=== PATIENT | male | born 1970 | race Caucasian/White ===

== ENCOUNTER 2022-08-01 13:10 | Inpatient (IN) | payer MEDICAID ==
[~2022-08-01] VITALS: Ht 180.3 cm; Wt 140.4 kg
[2022-08-01 13:59] LABS: BASOPHILS ABSOLUTE AUTO 0.03 K/mm3 (0.00-0.23); BASOPHILS PERCENT AUTO 0 % (0-2); EOSINOPHILS ABSOLUTE AUTO 0.11 K/mm3 (0.00-0.68); EOSINOPHILS PERCENT AUTO 2 % (0-6); Hemoglobin 14.5 g/dL (13.5-17.5); IMMATURE GRAN ABSOLUTE AUTO 0.04 K/mm3 (0.00-0.10); IMMATURE GRAN PERCENT AUTO 1 % (0-1); LYMPHOCYTES ABSOLUTE AUTO 2.33 K/mm3 (0.84-5.20); LYMPHOCYTES PERCENT AUTO 34 % (21-46); MONOCYTES ABSOLUTE AUTO 0.54 K/mm3 (0.16-1.47); MONOCYTES PERCENT AUTO 8 % (4-13); Mean Corpuscular HGB 28.9 pg (26.0-34.0); Mean Corpuscular HGB Conc 33.7 g/dL (31.5-36.5); Mean Corpuscular Volume 86 fL (80-100); Mean Platelet Volume 9.9 fL (9.1-12.4); NEUTROPHILS ABSOLUTE AUTO 3.83 K/mm3 (1.96-9.15); NEUTROPHILS PERCENT AUTO 56 % (41-73); Platelet Count 209 K/mm3 (150-400); RDW Standard Deviation 40.5 fL (35.1-46.3); Red Blood Cell Count 5.02 M/mm3 (4.30-5.90); White Blood Cell Count 6.88 K/mm3 (4.00-11.30)
[2022-08-01 14:23] LABS: Albumin, Blood 3.1 g/dL (3.4-5.0); Albumin/Globulin Ratio 0.8 (0.8-1.8); Bilirubin, Total 0.4 mg/dL (0.1-1.0); Bun/Creatinine Ratio 11.7 (12.0-20.0); Calcium, Blood 8.8 mg/dL (8.5-10.1); Creatinine, Blood 1.03 mg/dL (0.60-1.20); Globulin, Blood 3.7 g/dL (2.2-4.0); Potassium, Blood 3.6 mmol/L (3.5-5.5); Total Protein, Blood 6.8 g/dL (6.4-8.2)
[2022-08-01] MEDS ORDERED: Percocet 5-3251 EACH PO (17:00)
[2022-08-01] MEDS ORDERED: ACYC800 PO (17:00)
[2022-08-01] MEDS ORDERED: LIDO700A20 TOP (17:00)
[2022-08-01] MEDS ORDERED: IBUP800 PO (17:00)
[2022-08-01 19:16] LABS: Anti-Xa UFH, PHA Monitoring <0.10 IU/mL; Prothrombin Time Results 10.5 Sec (9.7-11.5)
[2022-08-02 02:56] LABS: Cholesterol 129 mg/dL (50-200); HDL Cholesterol 32 mg/dL (>39); LDL/HDL RATIO 1.9; Low Density Lipoprotein Chol 61 mg/dL (0-110); Triglycerides 181 mg/dL (30-160); Very Low Density Lipoprot Chol 36 mg/dL (6-32)
--- NOTE | 2022-08-02 05:34 | NUR ---
END OF SHIFT REPORT LINES: RAC DRIPS: HEPARIN AT 15 UNITS/KG/HR NEURO/MUSCULOSKELETAL: PT WNL. FOLLOWS COMMANDS. GROSS AND FINE SENSATION INTACT. INDEPENDENT IN THE ROOM. PT DENIES NUMBNESS/TINGLING, HEADACHE OR VISION CHANGES RESPIRATORY: RA. SATTING >95%. PT DENIES SOB/DYSPNEA. CARDIAC: SUBSTERNAL CHEST PAIN. MANAGING WITH PRNS. SB-NSR. HR 50s-60s. SBP AVERAGING 110s-130s. MAPS >65. GI/: NPO AT MIDNIGHT. HEART HEALTHY DIET. WNL. CONTINENT OF BOWEL AND BLADDER. INTEGUMENTARY: INTACT
[2022-08-02 10:08] LABS: BASOPHILS ABSOLUTE AUTO 0.03 K/mm3 (0.00-0.23); BASOPHILS PERCENT AUTO 1 % (0-2); EOSINOPHILS ABSOLUTE AUTO 0.12 K/mm3 (0.00-0.68); EOSINOPHILS PERCENT AUTO 2 % (0-6); Hematocrit 41.6 % (37.0-53.0); Hemoglobin 14.2 g/dL (13.5-17.5); IMMATURE GRAN ABSOLUTE AUTO 0.04 K/mm3 (0.00-0.10); IMMATURE GRAN PERCENT AUTO 1 % (0-1); LYMPHOCYTES ABSOLUTE AUTO 2.16 K/mm3 (0.84-5.20); LYMPHOCYTES PERCENT AUTO 36 % (21-46); MONOCYTES ABSOLUTE AUTO 0.54 K/mm3 (0.16-1.47); MONOCYTES PERCENT AUTO 9 % (4-13); Mean Corpuscular HGB 28.7 pg (26.0-34.0); Mean Corpuscular HGB Conc 34.1 g/dL (31.5-36.5); Mean Corpuscular Volume 84 fL (80-100); Mean Platelet Volume 10.1 fL (9.1-12.4); NEUTROPHILS ABSOLUTE AUTO 3.14 K/mm3 (1.96-9.15); NEUTROPHILS PERCENT AUTO 52 % (41-73); Platelet Count 198 K/mm3 (150-400); RDW Coefficient Variation 13.2 % (11.7-14.2); RDW Standard Deviation 40.1 fL (35.1-46.3); Red Blood Cell Count 4.95 M/mm3 (4.30-5.90); White Blood Cell Count 6.03 K/mm3 (4.00-11.30)
[2022-08-02 14:23] LABS: SARS-Cov-2 (COVID-19) PCR, MMC NEGATIVE (NEGATIVE)
--- NOTE | 2022-08-02 17:28 | NUR ---
ASSUMED CARE OF PT AT 0700 THIS AM. PT HAS DENIED CHEST PAIN OR SOB T/O SHIFT. TROPONINS AND D-DIMER ELEVATED, PT NEGATIVE FOR DVT, CTA + FOR BILATERAL PEs. DR SAUCEDO AND DR FELIZ AWARE, NEW ORDERS RECEIVED. DR SAUCEDO SPOKE WITH PT AND EXPLAINED PLAN. HEPARING GTT DC'd AND PT GIVEN XARELTO PER MD ORDERS. PT CONTINUES TO DENY CHEST PAIN OR PRESSURE, NO SOB. VSS, SEE DOCUMENTATION. PLAN PER DR GODINEZ IS TO DC PT TOMORROW. PT ABLE TO USE CALL LIGHT FOR NEEDS, CALL LIGHT IN REACH, WILL CONITNUE TO MONITOR AND GIVE REPORT TO NOC SHIFT RN.
[2022-08-03 04:02] LABS: BASOPHILS ABSOLUTE AUTO 0.01 K/mm3 (0.00-0.23); BASOPHILS PERCENT AUTO 0 % (0-2); EOSINOPHILS ABSOLUTE AUTO 0.15 K/mm3 (0.00-0.68); EOSINOPHILS PERCENT AUTO 3 % (0-6); Hematocrit 43.3 % (37.0-53.0); Hemoglobin 14.8 g/dL (13.5-17.5); IMMATURE GRAN ABSOLUTE AUTO 0.04 K/mm3 (0.00-0.10); IMMATURE GRAN PERCENT AUTO 1 % (0-1); LYMPHOCYTES ABSOLUTE AUTO 1.65 K/mm3 (0.84-5.20); LYMPHOCYTES PERCENT AUTO 31 % (21-46); MONOCYTES ABSOLUTE AUTO 0.46 K/mm3 (0.16-1.47); MONOCYTES PERCENT AUTO 9 % (4-13); Mean Corpuscular HGB 28.9 pg (26.0-34.0); Mean Corpuscular HGB Conc 34.2 g/dL (31.5-36.5); Mean Corpuscular Volume 85 fL (80-100); Mean Platelet Volume 9.7 fL (9.1-12.4); NEUTROPHILS ABSOLUTE AUTO 2.99 K/mm3 (1.96-9.15); NEUTROPHILS PERCENT AUTO 56 % (41-73); Platelet Count 200 K/mm3 (150-400); RDW Standard Deviation 39.9 fL (35.1-46.3); Red Blood Cell Count 5.12 M/mm3 (4.30-5.90)
[2022-08-03 04:43] LABS: Bun/Creatinine Ratio 11.4 (12.0-20.0); Calcium, Blood 8.4 mg/dL (8.5-10.1); Creatinine, Blood 1.14 mg/dL (0.60-1.20); Potassium, Blood 4.1 mmol/L (3.5-5.5)
--- NOTE | 2022-08-03 06:25 | NUR ---
GROUND WIRER SUMMARY ASSUMED CARE OF THE PT AT 1900. HE IS ALERT AND ORIENTED, INDEPENDENT IN THE ROOM. PT DENIES ALL CHEST PAIN/SHORTNESS OF BREATH. THIS RN DID HOLD NOC METOPROLOL DUE TO PT HR IN THE 50S AND BP DECREASING. PT TO BE SWITCHED OVER TO ORAL BLOOD THINNERS FOR TREATMENT OF PULMONARY EMBOLISM. HE IS ON RA AND SATTING IN THE HIGH 90S. NO TACHYPNEA. TELE HAS BEEN SINUS IN THE 50S AND 60S THROUGHOUT THE SHIFT. NO ACUTE EVENTS.
[2022-08-03] MEDS ORDERED: XARELTO15 MG PO (12:46)
[2022-08-03] MEDS ORDERED: XARELTO20 MG PO (12:47)
[2022-08-03] MEDS ORDERED: METO25ER PO (12:47)
--- NOTE | 2022-08-03 13:06 | NUR ---
PT DISHCARGED HOME WITH ALL BELONGINGS. PT PROVIDED WITH XARELTO DISCOUNT CARD. REVIEWED ALL DISCHARGE INFORMATION INCLUDING MEDICATION LIST, NEW PRESCRIPTIONS, FOLLOW UP AND NEED FOR ESTABLISHING PCP/INSURANCE. REINFORCED THE IMPORTANCE OF TAKING ALL HIS MEDICATIONS PRESCRIBED, ESPECIALLY THE XARELTO FOR HIS PE. PT VERBALIZED UNDERSTANDING OF ALL DISCHARGE INSTRUCTIONS, NO QUESTION OR CONCERNS AT THIS TIME. PT ABLE TO AMBULATE WITHOUT ASSISTANCE, ALL BELONGINGS SENT HOME WITH PT. NO FURTHER DISCHARGE NEEDS AT THIS TIME.
== END 2022-08-03 12:58 | disposition home or self-care (01) | DRG 176 ==
LOC: ER 13:10 → PCU 21:45
PROVIDERS: Internal Medicine Cardiovascular Disease; Student in an Organized Health Care Education/Training Program; ADMIT Internal Medicine
DX: I26.99 Other pulmonary embolism without acute cor pulmonale (principal); Z68.41 Body mass index [BMI] 40.0-44.9, adult; I20.0 Unstable angina; E66.01 Morbid (severe) obesity due to excess calories; R60.0 Localized edema; R79.1 Abnormal coagulation profile; E78.5 Hyperlipidemia, unspecified; I10 Essential (primary) hypertension; B02.9 Zoster without complications; R77.8 Other specified abnormalities of plasma proteins; Z20.822 Contact with and (suspected) exposure to COVID-19; Z87.442 Personal history of urinary calculi; Z87.01 Personal history of pneumonia (recurrent); Z87.891 Personal history of nicotine dependence; Z82.49 Family history of ischemic heart disease and other diseases of the circulatory system
CPT/HCPCS: 36415; 71046; 71260; 80048; 80053; 80061; 83690; 84484; 85025; 85379; 85520; 85610; 85730; 93005; 93010; 93306; 93971; 96365; 96366; 96375; 99285-25; A9270; J1644; J1885; Q9967; U0004

== ENCOUNTER → 2022-09-26 | Outpatient (CLI) | payer OTHER ==
[~2022-09-26] MED LIST: ACYC800 PO; IBUP800 PO; LIDO700A20 TOP; METO25ER PO; Percocet 5-3251 EACH PO; XARELTO15 MG PO; XARELTO20 MG PO
[2022-09-28 07:45] LABS: Stool Occult Blood Guaiac 1 Neg (Neg)
[2022-09-28 07:48] LABS: Stool Occult Blood Guaiac 2 Pos (Neg); Stool Occult Blood Guaiac 3 Neg (Neg)
== END | disposition home or self-care (01) ==
LOC: LAB SHORT 21:00 → LAB 21:00
PROVIDERS: Registered Nurse Oncology
DX: I26.99 Other pulmonary embolism without acute cor pulmonale (principal)
CPT/HCPCS: 82272

== ENCOUNTER 2022-10-05 22:09 | Observation (INO) | payer OTHER ==
[~2022-10-05] VITALS: Ht 180.3 cm; Wt 137.1 kg
[2022-10-05 22:31] LABS: BASOPHILS ABSOLUTE AUTO 0.04 K/mm3 (0.00-0.23); BASOPHILS PERCENT AUTO 1 % (0-2); EOSINOPHILS PERCENT AUTO 1 % (0-6); Hematocrit 46.1 % (37.0-53.0); Hemoglobin 15.3 g/dL (13.5-17.5); IMMATURE GRAN ABSOLUTE AUTO 0.03 K/mm3 (0.00-0.10); IMMATURE GRAN PERCENT AUTO 0 % (0-1); LYMPHOCYTES ABSOLUTE AUTO 2.77 K/mm3 (0.84-5.20); LYMPHOCYTES PERCENT AUTO 39 % (21-46); MONOCYTES ABSOLUTE AUTO 0.66 K/mm3 (0.16-1.47); MONOCYTES PERCENT AUTO 9 % (4-13); Mean Corpuscular HGB 28.8 pg (26.0-34.0); Mean Corpuscular HGB Conc 33.2 g/dL (31.5-36.5); Mean Corpuscular Volume 87 fL (80-100); Mean Platelet Volume 9.9 fL (9.1-12.4); NEUTROPHILS ABSOLUTE AUTO 3.43 K/mm3 (1.96-9.15); NEUTROPHILS PERCENT AUTO 49 % (41-73); Platelet Count 224 K/mm3 (150-400); RDW Coefficient Variation 13.2 % (11.7-14.2); RDW Standard Deviation 41.4 fL (35.1-46.3); Red Blood Cell Count 5.32 M/mm3 (4.30-5.90); White Blood Cell Count 7.03 K/mm3 (4.00-11.30)
[2022-10-05 22:47] LABS: Albumin, Blood 3.6 g/dL (3.4-5.0); Bilirubin, Total 0.6 mg/dL (0.1-1.0); Bun/Creatinine Ratio 17.1 (12.0-20.0); Creatinine, Blood 1.05 mg/dL (0.60-1.20); Globulin, Blood 3.6 g/dL (2.2-4.0); Potassium, Blood 3.9 mmol/L (3.5-5.5); Total Protein, Blood 7.2 g/dL (6.4-8.2)
[2022-10-05 23:11] LABS: International Normalized Ratio 1.03; Prothrombin Time Results 10.8 Sec (9.7-11.5)
[2022-10-06 01:51] LABS: Anti-Xa UFH, PHA Monitoring 0.25 IU/mL
--- NOTE | 2022-10-06 05:24 | NUR ---
Assumed care of pt at 0146 as an ER admit. A/Ox4 and independent in room. At admit to unit, CP/pressure was a 2/10. Patient was able to go to sleep and doesnt currently c/o pain. Maintains over 92% on RA. VSS. NSR on tele 60-70's. Patient is paras in color. Patient has been NPO since admit. Will report to dayshift RN.
[2022-10-06 09:39] LABS: BASOPHILS ABSOLUTE AUTO 0.04 K/mm3 (0.00-0.23); BASOPHILS PERCENT AUTO 1 % (0-2); EOSINOPHILS PERCENT AUTO 2 % (0-6); Hematocrit 44.3 % (37.0-53.0); Hemoglobin 14.6 g/dL (13.5-17.5); IMMATURE GRAN ABSOLUTE AUTO 0.02 K/mm3 (0.00-0.10); IMMATURE GRAN PERCENT AUTO 0 % (0-1); LYMPHOCYTES ABSOLUTE AUTO 2.06 K/mm3 (0.84-5.20); LYMPHOCYTES PERCENT AUTO 38 % (21-46); MONOCYTES ABSOLUTE AUTO 0.48 K/mm3 (0.16-1.47); MONOCYTES PERCENT AUTO 9 % (4-13); Mean Corpuscular Volume 88 fL (80-100); NEUTROPHILS ABSOLUTE AUTO 2.78 K/mm3 (1.96-9.15); NEUTROPHILS PERCENT AUTO 51 % (41-73); Platelet Count 189 K/mm3 (150-400); RDW Coefficient Variation 13.3 % (11.7-14.2); RDW Standard Deviation 42.5 fL (35.1-46.3); Red Blood Cell Count 5.04 M/mm3 (4.30-5.90); White Blood Cell Count 5.48 K/mm3 (4.00-11.30)
[2022-10-06 09:56] LABS: Bun/Creatinine Ratio 18.7 (12.0-20.0); Calcium, Blood 8.4 mg/dL (8.5-10.1); Creatinine, Blood 0.85 mg/dL (0.60-1.20)
--- NOTE | 2022-10-06 16:38 | NUR ---
SHIFT SUMMARY PATIENT ALERT AND ORIENTED. TAKES FREQUENT NAPS. INDEPENDENT IN ROOM. VSS, SB IN 60S ON TELE, RA. NPO 4 HOURS PRIOR TO CHEMICAL STRESS TEST AT 2 PM. OTHERWISE TOLERATING CARDIAC DIET, NO CAFFEINE. REPORTS CHRONIC BACK PAIN, DENIES CP/PRESSURE OR SOB. HEPARIN GTT RUNNING IN LAC PIV, TITRATED BY PHARMACY. PLAN FOR 2ND PART OF STRESS TEST IN AM. NPO AFTER MIDNIGHT. SPOUSE PRESENT AT BEDSIDE THROUGH AFTERNOON. WILL CONTINUE TO MONITOR.
[2022-10-07 01:09] LABS: BASOPHILS ABSOLUTE AUTO 0.03 K/mm3 (0.00-0.23); BASOPHILS PERCENT AUTO 1 % (0-2); EOSINOPHILS ABSOLUTE AUTO 0.13 K/mm3 (0.00-0.68); EOSINOPHILS PERCENT AUTO 3 % (0-6); Hematocrit 44.4 % (37.0-53.0); Hemoglobin 14.9 g/dL (13.5-17.5); IMMATURE GRAN ABSOLUTE AUTO 0.01 K/mm3 (0.00-0.10); IMMATURE GRAN PERCENT AUTO 0 % (0-1); LYMPHOCYTES ABSOLUTE AUTO 1.95 K/mm3 (0.84-5.20); LYMPHOCYTES PERCENT AUTO 39 % (21-46); MONOCYTES ABSOLUTE AUTO 0.43 K/mm3 (0.16-1.47); MONOCYTES PERCENT AUTO 9 % (4-13); Mean Corpuscular HGB 28.7 pg (26.0-34.0); Mean Corpuscular HGB Conc 33.6 g/dL (31.5-36.5); Mean Corpuscular Volume 86 fL (80-100); Mean Platelet Volume 10.2 fL (9.1-12.4); NEUTROPHILS ABSOLUTE AUTO 2.44 K/mm3 (1.96-9.15); NEUTROPHILS PERCENT AUTO 49 % (41-73); Platelet Count 196 K/mm3 (150-400); RDW Coefficient Variation 13.2 % (11.7-14.2); RDW Standard Deviation 41.1 fL (35.1-46.3); Red Blood Cell Count 5.19 M/mm3 (4.30-5.90); White Blood Cell Count 4.99 K/mm3 (4.00-11.30)
[2022-10-07 01:24] LABS: Albumin, Blood 3.2 g/dL (3.4-5.0); Anion Gap 5 mmol/L (6-16); Blood Urea Nitrogen 16 mg/dL (8-24); CO2, Blood 24 mmol/L (21-32); Calcium, Blood 8.7 mg/dL (8.5-10.1); Chloride, Blood 111 mmol/L (98-108); Creatinine, Blood 0.94 mg/dL (0.60-1.20); Glomerular Filtration Rate 98 (60-); Glucose, Blood 110 mg/dL (70-99); Magnesium, Blood 2.1 mg/dL (1.6-2.4); Phosphorus, Blood 4.1 mg/dL (2.5-4.9); Potassium, Blood 3.9 mmol/L (3.5-5.5); Sodium, Blood 140 mmol/L (136-145)
--- NOTE | 2022-10-07 06:20 | NUR ---
SHIFT SUMMARY A/OX4, IND IN ROOM. PLEASANT AND COOPERATIVE WITH CARE. SPO2 >92% ON RA. TELE SR IN THE 60S. DENIES CHEST PAIN/PRESSURE. NPO SINCE MIDNIGHT FOR STRESS TEST TODAY. HEPARIN GTT RUNNING AT 15U/KG/HR. VSS, NO ACUTE CHANGES AT THIS TIME. BED IN LOWEST POSITION WITH CALL LIGHT IN REACH. WILL CONTINUE TO MONITOR AND REPORT TO ONCOMING RN.
--- NOTE | 2022-10-07 08:06 | NUR ---
CARE ASSUMPTION This RN assumed care at 0700. vital signs stable. tele sr 60-70. patient is alert and oriented x4. perrla. patient reports no pain. patient reports no shortness of breath. patient reports no chest pain/pressure. patient abd is active nontender. see shift assessment for further detials. patient is receiving second part of stress test, depending results once completed the plan is for the patient to be discharged today. patient aware and verbalized understanding. heparin drip infusing, see emar. patient is independent in the room. patient uses call light appropriately to make needs known. call light within reach. plan of care is up to date.
[2022-10-07] MEDS ORDERED: XARELTO20 M1 PO (12:12)
[2022-10-07] MEDS ORDERED: ASPI81CH PO (12:13)
[2022-10-07] MEDS ORDERED: Acetaminophen325 M1 PO (12:13)
[2022-10-07] MEDS ORDERED: ATOR40TA PO (12:16)
--- NOTE | 2022-10-07 12:50 | NUR ---
DISCHAGRE PATIENT RECEIVED DISCHARGE INSTRUCTIONS FROM AD WRITER GABE. MEDICATIONS FAXED TO PHARMACY. PATIENT LEFT WITH ALL BELONGINGS AND IN NO DISTRESS.
== END 2022-10-07 12:37 | disposition home or self-care (01) ==
LOC: ER 22:09 → PCU 10-06 01:42 → ER 10-06 01:42 → PCU 10-06 01:48
PROVIDERS: Emergency Medicine; Family Medicine; ADMIT Family Medicine
DX: I26.99 Other pulmonary embolism without acute cor pulmonale (principal); Z79.01 Long term (current) use of anticoagulants; I20.0 Unstable angina; Z87.891 Personal history of nicotine dependence
CPT/HCPCS: 36415; 71046; 78452; 80048; 80053; 80069; 83690; 83735; 83880; 84484; 85025; 85520; 85610; 85730; 93005; 93010; 93017; 96374; 96376; 99285-25; A9270; A9500; G0378; J0706; J1644; J2785

== ENCOUNTER 2023-03-30 09:10 | Day surgery (SDC) | payer OTHER ==
[~2023-03-30] VITALS: Ht 180.3 cm; Wt 133.2 kg
[~2023-03-30 09:10] MED LIST changes: +ASPI81CH PO; +ATOR40TA PO; +Acetaminophen325 M1 PO; +XARELTO20 M1 PO
[2023-03-30 09:38] VITALS: BP 150/81
--- NOTE | 2023-03-30 09:42 | NUR ---
Ambulatory in Day Surgery. History, Chart, Medications and Allergies reviewed before start of procedure. Lungs clear T/O to Auscultation. Patient confirms NPO status and agrees with scheduled surgery. Pre-Op teaching done. Pt verbalizes understanding. Patient States Post-Procedure ride home has been arranged.
[2023-03-30 10:30] VITALS: BP 138/103
[2023-03-30 10:34] VITALS: BP 148/96
[2023-03-30 10:50] VITALS: BP 153/110
--- NOTE | 2023-03-30 11:05 | NUR ---
DISCHARGE PT A&OX4, VSS/RA, ANIL PO, IV DC'D, DC INS PROVIDED TO PT AND . LEFT VIA WC WITH ALL [employer]ERSON[employer] DC INS. ARRANGED FOR TRANSPORTATION FOR BOTH PARTIES TO BE PICKED UP AT [facility]. BOTH PARTIES WERE TAKEN OUT IN WC AND SEATED AT FRONT ENTRANCE.
== END 2023-03-30 11:00 | disposition home or self-care (01) ==
LOC: ORSCMMR 09:10 → ORD 10:15 → ORSCMMR 11:00
PROVIDERS: Internal Medicine Gastroenterology
PROC: 0DJD8ZZ Inspection of Lower Intestinal Tract, Via Natural or Artificial Opening Endoscopic (ICD-10-PCS; principal; 2023-03-30 10:15)
DX: Z12.11 Encounter for screening for malignant neoplasm of colon (principal); K57.30 Diverticulosis of large intestine without perforation or abscess without bleeding; K64.8 Other hemorrhoids; Z87.891 Personal history of nicotine dependence; Z86.711 Personal history of pulmonary embolism; E66.9 Obesity, unspecified; Z68.41 Body mass index [BMI] 40.0-44.9, adult
CPT/HCPCS: J2704; J7120

== ENCOUNTER 2024-07-04 18:18 | Emergency (ER) | payer SELFPAY ==
[~2024-07-04] VITALS: Ht 180.3 cm; Wt 140.6 kg
[2024-07-04 18:56] LABS: BASOPHILS ABSOLUTE AUTO 0.04 K/mm3 (0.00-0.23); BASOPHILS PERCENT AUTO 1 % (0-2); EOSINOPHILS ABSOLUTE AUTO 0.08 K/mm3 (0.00-0.68); EOSINOPHILS PERCENT AUTO 1 % (0-6); Hematocrit 46.5 % (37.0-53.0); IMMATURE GRAN ABSOLUTE AUTO 0.02 K/mm3 (0.00-0.10); IMMATURE GRAN PERCENT AUTO 0 % (0-1); LYMPHOCYTES ABSOLUTE AUTO 1.99 K/mm3 (0.84-5.20); LYMPHOCYTES PERCENT AUTO 28 % (21-46); MONOCYTES ABSOLUTE AUTO 0.54 K/mm3 (0.16-1.47); MONOCYTES PERCENT AUTO 8 % (4-13); Mean Corpuscular HGB 29.7 pg (26.0-34.0); Mean Corpuscular HGB Conc 34.4 g/dL (31.5-36.5); Mean Corpuscular Volume 86 fL (80-100); Mean Platelet Volume 10.2 fL (9.1-12.4); NEUTROPHILS PERCENT AUTO 62 % (41-73); Platelet Count 224 K/mm3 (150-400); RDW Coefficient Variation 12.9 % (11.7-14.2); RDW Standard Deviation 40.5 fL (35.1-46.3); Red Blood Cell Count 5.39 M/mm3 (4.30-5.90); White Blood Cell Count 7.07 K/mm3 (4.00-11.30)
[2024-07-04 19:10] LABS: Albumin, Blood 3.8 g/dL (3.4-5.0); Calcium, Blood 9.5 mg/dL (8.5-10.1); Potassium, Blood 3.7 mmol/L (3.5-5.5)
[2024-07-04 19:11] LABS: Bun/Creatinine Ratio 12.7 (12.0-20.0); Creatinine, Blood 1.1 mg/dL (0.60-1.20); Total Protein, Blood 7.8 g/dL (6.4-8.2)
[2024-07-04] MEDS ORDERED: Ondansetron HCl 2 MG / ML 2ML Vial IV ONE (19:25)
[2024-07-04] MEDS ORDERED: Morphine Sulfate 4 MG/1 ML Injection IV ONE ×2 (19:25→20:00)
[2024-07-04] MEDS ORDERED: Lidocaine 2% Viscous Soln 15 ML UDC PO ONE (20:05)
[2024-07-04] MEDS ORDERED: Famotidine 20 MG Tab PO ONE (20:05)
[2024-07-04] MEDS ORDERED: Mag Hydrox/AL Hydrox/Simeth 30 ML UDC PO ONE (20:05)
[2024-07-04] MEDS ORDERED: Ketorolac Tromethamine 15mg Vial IV ONE (21:50)
[2024-07-04 21:52] LABS: Source, Urine Clean Catch
[2024-07-04 21:54] LABS: Bilirubin, Urine Neg (Neg); Blood, Urine Neg (Neg); Glucose Qualitative, Urine Neg (Neg); Ketones, Urine 1+ (Neg); Leukocyte Esterase, Urine 1+ (Neg); Nitrite, Urine Neg (Neg); Protein, Urine Neg (Neg); Urobilinogen, Urine NORM (Normal)
[2024-07-04 21:57] LABS: Appearance, Urine Clear (Clear); Color, Urine Yellow (P-Yellow)
[2024-07-04 22:06] LABS: Bacteria Not Seen /hpf; Red Blood Cells, Urine 0-2 /hpf (0-2); Squamous Epithelial Cells Rare /hpf (Few)
[2024-07-04 22:30] VITALS: BP 147/86
[2024-07-04] MEDS ORDERED: Haloperidol Lactate Inj. 5 MG/ML Injection IV ONE (22:55)
[2024-07-04] MEDS ORDERED: Acetaminophen 500 MG Tab PO ONE (22:55)
== END 2024-07-04 22:57 | disposition home or self-care (01) ==
LOC: ER 18:18
PROVIDERS: Student in an Organized Health Care Education/Training Program
DX: R10.12 Left upper quadrant pain (principal); R10.13 Epigastric pain; E66.01 Morbid (severe) obesity due to excess calories; Z87.891 Personal history of nicotine dependence
CPT/HCPCS: 74177; 80053; 81001; 83605; 83690; 84484; 85025; 93005; 93010; 96374-59; 96375; 96376; 99284-25; A9270; J1885; J2270; J2405; Q9967

== ENCOUNTER 2025-01-03 20:29 | Observation (INO) | payer OTHER ==
[~2025-01-03] VITALS: Ht 180.3 cm; Wt 137.5 kg
[2025-01-03 21:20] LABS: BASOPHILS ABSOLUTE AUTO 0.03 K/mm3 (0.00-0.23); BASOPHILS PERCENT AUTO 0 % (0-2); EOSINOPHILS ABSOLUTE AUTO 0.07 K/mm3 (0.00-0.68); EOSINOPHILS PERCENT AUTO 1 % (0-6); Hematocrit 45.8 % (37.0-53.0); Hemoglobin 15.5 g/dL (13.5-17.5); IMMATURE GRAN ABSOLUTE AUTO 0.03 K/mm3 (0.00-0.10); IMMATURE GRAN PERCENT AUTO 0 % (0-1); LYMPHOCYTES ABSOLUTE AUTO 1.71 K/mm3 (0.84-5.20); LYMPHOCYTES PERCENT AUTO 18 % (21-46); MONOCYTES ABSOLUTE AUTO 0.57 K/mm3 (0.16-1.47); MONOCYTES PERCENT AUTO 6 % (4-13); Mean Corpuscular HGB 29.4 pg (26.0-34.0); Mean Corpuscular HGB Conc 33.8 g/dL (31.5-36.5); Mean Corpuscular Volume 87 fL (80-100); Mean Platelet Volume 10.1 fL (9.1-12.4); NEUTROPHILS ABSOLUTE AUTO 6.98 K/mm3 (1.96-9.15); NEUTROPHILS PERCENT AUTO 74 % (41-73); Platelet Count 168 K/mm3 (150-400); RDW Coefficient Variation 12.9 % (11.7-14.2); RDW Standard Deviation 40.5 fL (35.1-46.3); Red Blood Cell Count 5.28 M/mm3 (4.30-5.90); White Blood Cell Count 9.39 K/mm3 (4.00-11.30)
[2025-01-03 21:40] LABS: Albumin, Blood 3.5 g/dL (3.4-5.0); Albumin/Globulin Ratio 0.9 (0.8-1.8); Bilirubin, Total 1.1 mg/dL (0.1-1.0); Bun/Creatinine Ratio 13.2 (12.0-20.0); Calcium, Blood 8.8 mg/dL (8.5-10.1); Creatinine, Blood 1.21 mg/dL (0.60-1.20); Globulin, Blood 3.7 g/dL (2.2-4.0); Total Protein, Blood 7.2 g/dL (6.4-8.2)
[2025-01-03] MEDS ORDERED: Ketorolac Tromethamine 15mg Vial IV ONE (22:15)
[2025-01-03] MEDS ORDERED: Acetaminophen 500 MG Tab PO ONE (22:15)
[2025-01-03] MEDS ORDERED: Lidocaine 4% 1 Patch TOP ONE (22:15)
[2025-01-04 01:26] LABS: Source, Urine Clean Catch
[2025-01-04 01:29] LABS: Bilirubin, Urine Neg (Neg); Blood, Urine 3+ (Neg); Glucose Qualitative, Urine 2+ (Neg); Ketones, Urine Neg (Neg); Leukocyte Esterase, Urine 3+ (Neg); Nitrite, Urine Neg (Neg); Protein, Urine 2+ (Neg); Urobilinogen, Urine NORM (Normal)
[2025-01-04 01:44] LABS: Appearance, Urine Hazy (Clear); Color, Urine Yellow (P-Yellow)
[2025-01-04 01:45] LABS: Amorphous Light (0-Heavy); Bacteria Few /hpf; Mucus Light (0-Heavy); Squamous Epithelial Cells Not Seen /hpf (Few); White Blood Cells, Urine 50-100 /hpf (0-5)
[2025-01-04] MEDS ORDERED: Heparin Sodium 5000 Units/ML 1ML MDV IV ONE (02:00)
[2025-01-04] MEDS ORDERED: Ondansetron HCl 2 MG / ML 2ML Vial IV PRN (02:05)
[2025-01-04] MEDS ORDERED: NS 1,000 ML IV ONE (02:05)
[2025-01-04] MEDS ORDERED: Acetaminophen 325 MG TABLET PO PRN (02:05)
[2025-01-04] MEDS ORDERED: Heparin Sodium,Porcine/0.5 NS 500 ML IV SCH ×2 (02:05→10:00)
[2025-01-04 02:14] LABS: Anti-Xa UFH, PHA Monitoring >1.50 IU/mL
[2025-01-04] MEDS ORDERED: CefTRIAXone Sodium 1,000 MG in NS 100 ML IV SCH (02:37)
[2025-01-04] MEDS ORDERED: FentaNYL Citrate 50 MCG/ML 2 ML Injection IV PRN (02:40)
[2025-01-04 02:42] VITALS: BP 112/69
--- NOTE | 2025-01-04 05:00 | NUR ---
SHIFT SUMMARY: PT ARRIVED TO FLOOR AT 0044. PT IS A&OX4. INDEPENDENT IN ROOM. PT INFORMED NURSE DURING ADMISSION THAT HE TOOK 40MG OF XARELTO, DOUBLE HIS PREVIOUS DOSE, PRIOR TO ADMISSION. MD HAS HELD THE HEPARIN DRIP FOR NOW AND PLAN IS TO START LATER IN THE MORNING. NO COMPLAINTS OF PAIN AT THIS TIME. PT IS RESTING IN BED, EXPRESSED NO OTHER CONCERNS AT THIS TIME. BED IS LOW AND LOCKED. CALL LIGHT IS WITHIN REACH.
[2025-01-04 06:34] LABS: BASOPHILS ABSOLUTE AUTO 0.05 K/mm3 (0.00-0.23); BASOPHILS PERCENT AUTO 1 % (0-2); EOSINOPHILS ABSOLUTE AUTO 0.12 K/mm3 (0.00-0.68); EOSINOPHILS PERCENT AUTO 2 % (0-6); Hematocrit 46.4 % (37.0-53.0); Hemoglobin 15.2 g/dL (13.5-17.5); IMMATURE GRAN ABSOLUTE AUTO 0.03 K/mm3 (0.00-0.10); IMMATURE GRAN PERCENT AUTO 0 % (0-1); LYMPHOCYTES ABSOLUTE AUTO 2.56 K/mm3 (0.84-5.20); LYMPHOCYTES PERCENT AUTO 32 % (21-46); MONOCYTES PERCENT AUTO 12 % (4-13); Mean Corpuscular HGB 28.4 pg (26.0-34.0); Mean Corpuscular HGB Conc 32.8 g/dL (31.5-36.5); Mean Corpuscular Volume 87 fL (80-100); Mean Platelet Volume 9.9 fL (9.1-12.4); NEUTROPHILS ABSOLUTE AUTO 4.29 K/mm3 (1.96-9.15); NEUTROPHILS PERCENT AUTO 53 % (41-73); Platelet Count 151 K/mm3 (150-400); RDW Coefficient Variation 13.1 % (11.7-14.2); RDW Standard Deviation 41.8 fL (35.1-46.3); Red Blood Cell Count 5.35 M/mm3 (4.30-5.90); White Blood Cell Count 8.05 K/mm3 (4.00-11.30)
[2025-01-04 07:04] LABS: Albumin, Blood 3.1 g/dL (3.4-5.0); Albumin/Globulin Ratio 0.8 (0.8-1.8); Bilirubin, Total 1.1 mg/dL (0.1-1.0); Bun/Creatinine Ratio 12.4 (12.0-20.0); Calcium, Blood 8.7 mg/dL (8.5-10.1); Creatinine, Blood 1.29 mg/dL (0.60-1.20); Globulin, Blood 3.8 g/dL (2.2-4.0); Total Protein, Blood 6.9 g/dL (6.4-8.2)
[2025-01-04 08:29] VITALS: BP 137/75
[2025-01-04 10:26] LABS: Anti-Xa UFH, PHA Monitoring 0.7 IU/mL; International Normalized Ratio 1.2
[2025-01-04 15:12] VITALS: BP 136/76
[2025-01-04] MEDS ORDERED: Rivaroxaban 10 MG Tab PO SCH (16:00)
--- NOTE | 2025-01-04 17:57 | NUR ---
SHIFT SUMMARY PATIENT IN BED MOST OF SHIFT. HEPARIN DRIP STARTED AND DC'D, XARELTO GIVEN. A/O X4. US TO BILAT LEGS DONE AND RESULTED. DR CHAVES PLANNING ON POSSIBLE DISCHARGE FOR TOMORROW. ABLE TO MAKE NEEDS KNOWN. CALL LIGHT IN REACH,
[2025-01-04 19:48] VITALS: BP 126/87
[2025-01-04 23:12] VITALS: BP 122/70
[2025-01-05 03:20] VITALS: BP 111/55
--- NOTE | 2025-01-05 06:32 | NUR ---
PT ALERT AND ORIENTED X4. NO COMPLAINS OF CHEST PAIN OR SOB. PT AMBULATING INDEPENDENTLY TO THE BATHROOM. CALL MCNAIR WITHIN REACH.
--- NOTE | 2025-01-05 07:20 | NUR ---
ASSUMPTION OF CARE: THIS RN ASSUMED CARE OF PATIENT. ASLEEP DURING SHIFT CHANGE REPORT; WOKE DURING AND REQUESTED PHONE TO CALL , YOVANY. LYING IN BED c HOB ELEVATED. SALINE LOCKED. BREATHING EVEN AND UNLABORED c ROOM AIR. TELE RHYTHM READS SINUS IN 70s PER MONITOR. BED IN LOWEST POSITION. CALL LIGHT WITHIN REACH. ACUTE NEEDS MET.
[2025-01-05 08:44] VITALS: BP 109/82
--- NOTE | 2025-01-05 10:12 | NUR ---
ASSUMPTION OF CARE: ASSUMED CARE OF PATIENT. SLEEPING DURING SHIFT-CHANGE REPORT, LYING ON LEFT SIDE, FACING BATHROOM DOOR. BREATHING EVEN AND UNLABORED c LIGHT SNORE. IV SALINE LOCKED. BED IN LOWEST POSITION, CALL LIGHT WITHIN REACH. NO ACUTE NEEDS.
[2025-01-05] MEDS ORDERED: XARELTO20 MG PO (12:46)
--- NOTE | 2025-01-05 14:11 | NUR ---
DISCHARGE SUMMARY: A&Ox4. PLEASANT AND COOPERATIVE WITH CARE. CALLS APPROPRIATELY AND IS ABLE TO ADVOCATE NEEDS EFFECTIVELY. AMBULATES INDEPENDENTLY. CONTINENT OF BOWEL AND BLADDER; LBM TODAY. TAKES MEDS WHOLE c FLUIDS. TELE SINUS RHYTHM. NO C/O PAIN OR DISCOMFORT. PATIENT PROVIDED WITH COPY OF DISCHARGE PLAN AND MEDICATION LIST. MED REC FAXED TO [facility]. INSTRUCTED TO FOLLOW-UP WITH PCP @ [facility]. ALL QUESTIONS ANSWERED TO THIS NURSE'S ABILITY AND PATIENT VOICED UNDERSTANDING OF DISCHARGE PLAN. IV x2 REMOVED AND PRESSURE DRESSING PLACED. LEFT FLOOR WITH ALL BELONGINGS AND DISCHARGE PACKET. TRANSPORTATION PROVIDED BY P[facility].
[2025-01-05 19:19] LABS: CARDIOLIPIN ANTIBODY IGG <10 GPL (<=14); CARDIOLIPIN ANTIBODY IGM <10 MPL (<=12)
[2025-01-05 20:19] LABS: HOMOCYSTEINE, TOTAL 12 umol/L (0-15)
[2025-01-05 22:43] LABS: B2GLYCOPROTEIN 1, IGG ANTIBODY <10 SGU (<=20); B2GLYCOPROTEIN 1, IGM ANTIBODY <10 SMU (<=20)
[2025-01-06 10:36] LABS: PROTEIN S AG FREE 97 % (74-147)
[2025-01-06 11:29] LABS: PROTEIN C FUNCTIONAL 144 % (83-168)
[2025-01-06 11:57] LABS: APC RESISTANCE 3.76 (>=2.00); FACTOR V LEIDEN BY PCR Not Done; FACV REF SPECIMEN Not Done
[2025-01-06 13:36] LABS: ANTITHROMBIN, ENZYM (ACTIVITY) 78 % (76-128)
[2025-01-06 21:22] LABS: ANTI-XA QUALITATIVE INTERP Present (Not Present); ANTICOAG MEDICATION NEUTRALIZ DOAC-Stop (Not Performed); DRVVT 1:1 MIX RATIO Not Performed (<=1.20); DRVVT CONFIRMATION RATIO Not Performed (<=1.20); DRVVT SCREEN RATIO 2.87 (<=1.20); HEXAGONAL PHOSPHOLIPID CONFIRM 17.5 s (<=7.9); NEUTRALIZED DRVVT SCREEN RATIO 1.14 (<=1.20); NEUTRALIZED PTT-LA RATIO 1.21 (<=1.20); PROTHROMBIN TIME (PT) 22.1 s (12.0-15.5); PTT-LA RATIO 1.85 (<=1.20); THROMBIN TIME (TT) 16.7 s (<=19.5)
[2025-01-09 14:36] LABS: PROTHROMBIN F2 G20210A VARIANT Negative; PT PCR SPECIMEN Whole Blood
== END 2025-01-05 13:48 | disposition home or self-care (01) ==
LOC: ER 20:29 → MEDS 20:30
PROVIDERS: Emergency Medicine; Student in an Organized Health Care Education/Training Program; ADMIT Internal Medicine
DX: I26.99 Other pulmonary embolism without acute cor pulmonale (principal); I82.432 Acute embolism and thrombosis of left popliteal vein; I82.442 Acute embolism and thrombosis of left tibial vein; N39.0 Urinary tract infection, site not specified; E66.9 Obesity, unspecified; K57.30 Diverticulosis of large intestine without perforation or abscess without bleeding; N17.9 Acute kidney failure, unspecified; Z79.01 Long term (current) use of anticoagulants; N18.1 Chronic kidney disease, stage 1
CPT/HCPCS: 36415; 71045; 71260; 80053; 81001; 81240; 83090; 83690; 83880; 84484; 85025; 85300; 85303; 85306; 85307; 85379; 85520; 85610; 85613; 85670; 85730; 86146; 86147; 87086; 93005; 93010; 93306; 93970; 96367; 96374-59; 96375; 96376; 99285-25; A9270; G0378; J0696; J1644; J1885; J7030; Q9967